=== PATIENT | female | born 1990 | race Caucasian/White ===

== ENCOUNTER 2017-10-07 12:32 | Emergency (ER) | payer OTHER ==
[2017-10-07 12:48] VITALS: BP 115/68
--- NOTE | 2017-10-07 13:18 | UC ---
HPI Febrile Illness - HPI Summary HPI Summary: The patient is a 27-year-old female of fever ,chills, headache and rash. She has had severe myalgias especially of the hips and knees. Her rash is not pruritic. The rash is primarily located on the arms and legs. She has no rash on her palms or soles of her feet. She had Lyme disease last summer and her symptoms are similar to what she had back then. She has not traveled outside of the area. She does not recall any recent tick bites. She works outdoors every day. - History of Current Complaint Chief Complaint: UCGeneralIllness Time Seen by Provider: 10/07/17 12:54 Hx Obtained From: Patient Hx Last Menstrual Period: iud Timing: Constant Initial Severity: Moderate Current Severity: Mild Pain Intensity: 4 Pain Scale Used: 0-10 Numeric Associated Signs and Symptoms: Arthralgia, Chills, Headache, Joint Pain, Rash, Other: - fever - Allergy/Home Medications Allergies/Adverse Reactions: Allergies Allergy/AdvReac Type Severity Reaction Status Date / Time Latex, Natural Rubber Allergy Rash Verified 10/07/17 12:49 DOGS Allergy Severe Itching Uncoded 01/16/15 21:53 PMH/Surg Hx/FS Hx/Imm Hx Previously Healthy: Yes - Lyme disease Other History Of: Negative For: HIV, Hepatitis B, Hepatitis C, Anticoagulant Therapy - Surgical History Surgical History: Yes Surgery Procedure, Year, and Place: right wrist cyst (benign); wisdom teeth - Family History Known Family History: Positive: Hypertension Negative: Cardiac Disease - Social History Alcohol Use: None Substance Use Type: None Smoking Status (MU): Former Smoker Amount Used/How Often: 2012 Household Exposure Type: Cigarettes - Immunization History Most Recent Influenza Vaccination: never gets Most Recent Tetanus Shot: 12/2014 Review of Systems Constitutional: Fever, Chills, Fatigue Skin: Negative Eyes: Negative ENT: Negative Respiratory: Negative Cardiovascular: Negative Gastrointestinal: Negative Genitourinary: Negative Motor: Negative Neurovascular: Negative Musculoskeletal: Arthralgia Neurological: Headache Psychological: Negative Is Patient Immunocompromised?: No All Other Systems Reviewed And Are Negative: Yes Physical Exam Triage Information Reviewed: Yes Appearance: Well-Appearing, No Pain Distress, Well-Nourished Vital Signs: Initial Vital Signs Temp 98.6 F 10/07/17 12:45 Pulse 66 07/26/18 12:45 Resp 16 10/07/17 12:45 BP 115/68 10/07/17 12:45 Pulse Ox 100 10/07/17 12:45 Vital Signs Reviewed: Yes Eyes: Positive: Conjunctiva Clear ENT: Positive: Hearing grossly normal, TMs normal. Negative: Pharyngeal erythema, Nasal congestion, Nasal drainage, Tonsillar swelling, Tonsillar exudate, Trismus, Muffled voice, Hoarse voice, Dental tenderness, Sinus tenderness Neck: Positive: Supple, Nontender, No Lymphadenopathy Respiratory: Positive: Lungs clear, Normal breath sounds, No respiratory distress, No accessory muscle use Cardiovascular: Positive: RRR, No Murmur Abdomen Description: Positive: Nontender, No Organomegaly. Negative: CVA Tenderness (R), CVA Tenderness (L) Musculoskeletal: Positive: ROM Intact, No Edema, Other: - no hot or red jonts Neurological: Positive: Alert Psychological Exam: Normal Skin Exam: Normal Course/Dx - Diagnoses Clinic Provider Diagnoses: febrile illness/suspect Lyme Disease Discharge - Sign-Out/Discharge Documenting (check all that apply): Patient Departure - Discharge Plan Condition: Stable Disposition: HOME Prescriptions: DOXYcycline CAP(*) [DOXYcycline 100MG CAP(*)] 100 mg PO BID #28 cap Patient Education Materials: Arthralgia (ED) Referrals: No Primary Care Phys,NOPCP [Primary Care Provider] - Additional Instructions: blood test for lyme disease pending we will treat with antibiotics You need to see your Tim MD early next week in follow up [place] if symptoms worsen If this does not prove to be due to lyme disease you will need further investigation - Billing Disposition and Condition Condition: STABLE Disposition: Home
--- NOTE | 2017-10-11 15:17 | UC ---
- Progress Note Progress Note: Prelim lyme is POSITIVE. Pt is currently being treated for lyme. Please let him know - confirmatory tests are pending and we will call with those results when they return. Discharge - Sign-Out/Discharge Documenting (check all that apply): Post-Discharge Follow Up - Discharge Plan Condition: Stable Disposition: HOME Prescriptions: DOXYcycline CAP(*) [DOXYcycline 100MG CAP(*)] 100 mg PO BID #28 cap Patient Education Materials: Arthralgia (ED) Referrals: No Primary Care Phys,NOPCP [Primary Care Provider] - Additional Instructions: blood test for lyme disease pending we will treat with antibiotics You need to see your Tim LEONARD early next week in follow up Soon[place] if symptoms worsen If this does not prove to be due to lyme disease you will need further investigation - Billing Disposition and Condition Condition: STABLE Disposition: Home Attestation Statement User Type: Provider - I was available for consult. This patient was seen by the SINDI. The patient was not presented to, seen by, or examined by me. -Destinee
== END 2017-10-07 13:41 | disposition home or self-care (01) ==
LOC: UCEAST 12:32
DX: R50.9 Fever, unspecified (principal); R51 Headache; R21 Rash and other nonspecific skin eruption; Z91.040 Latex allergy status; Z91.09 Other allergy status, other than to drugs and biological substances; Z86.19 Personal history of other infectious and parasitic diseases; Z87.891 Personal history of nicotine dependence
CPT/HCPCS: 86617; 86618; 99212; G0463

== ENCOUNTER 2018-02-08 19:04 | Emergency (ER) | payer OTHER ==
[2018-02-08] MEDS ORDERED: Diazepam TAB(*) 5 MG PO ONE (20:45)
[2018-02-08] MEDS ORDERED: Ibuprofen TAB* 600 MG PO ONE (20:45)
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
[2018-02-08] MEDS ORDERED: Cyclobenzaprine TAB* 10 MG PO ONE (20:54)
[2018-02-08 21:14] VITALS: BP 117/61
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
== END 2018-02-08 21:13 | disposition home or self-care (01) ==
LOC: ED 19:04
DX: M25.561 Pain in right knee (principal); M54.5 Low back pain; Z87.891 Personal history of nicotine dependence
CPT/HCPCS: 99282; A9270-GY